=== PATIENT | female | born 1960 | race African-American/Black ===

== ENCOUNTER 2017-03-19 06:21 | Emergency (ER) | payer MEDICARE, OTHER ==
[~2017-03-19] VITALS: Ht 152.4 cm; Wt 110.2 kg
[~2017-03-19 06:21] MED LIST: ALBU8.5H6 IH; ALPR0.5T PO; CALC600T4 PO; CITA40TA5 PO; CYCL-331 PO; ESOM40CA PO; FURO-69 PO; IBUP100T4 PO; LEVO175T2 PO; METO25TA9 PO; MONT10TA6 PO; OXYC-323 PO; PNV1TABL12 PO; QUET50TA5 PO; SIMV20TA3 PO; TRAZ-90 PO; VITAMIN B
--- NOTE | 2017-03-19 06:28 | ED.ADGEN ---
Past History Past Medical History: Anxiety, Asthma, COPD, Depression, Hypertension, Ovarian Cyst Past Surgical History: , Hysterectomy, Knee Replacement, Tonsillectomy , Other Additional Past Surgical Histo: lap band, thyroid removed, sinus surgery, ovarian cyst removal, ganglion Smoking: Non-smoker Alcohol Use: None Drug Use: None Adult General Chief Complaint Chief Complaint Back pain HPI HPI Patient is a 57 year old -[place] female who presents with right-sided back pain. She states that [place] all [place] with baclofen and Motrin. She seen her primary care physician and had therapy and was started on Percocet for a while. She then 2 months ago fell at [employer]. She states she's been having pain even before the [employer] fall on her right hip/back area. She was seen by a rider whose stated it was in her hip and was more in her back. She describes the pain as a sharp stabbing pain in the right lumbar paraspinal area that radiates down her leg past her knee. She states it hurts in the middle night and grabs her and is a sharp throbbing pain and then will resolve. She's tried Motrin and has tried some Flexeril at home and tried ice. She denies any leg numbness, saddle anesthesia, urinary incontinence fevers chills nausea or vomiting or dysuria. She does have a primary care physician of which has an appointment with next week. She states her primary care physician encouraged her to use Motrin. Review of Systems Review of Systems Constitutional: Denies fever or chills [] Eyes: Denies change in visual acuity, redness, or eye pain [] HENT: Denies nasal congestion or sore throat [] Respiratory: Denies cough or shortness of breath [] Cardiovascular: No additional information not addressed in HPI [] GI: Denies abdominal pain, nausea, vomiting, bloody stools or diarrhea [] : Denies dysuria or hematuria [] Musculoskeletal: Positive for back pain Integument: Denies rash or skin lesions [] Neurologic: Denies headache, focal weakness or sensory changes [] Endocrine: Denies polyuria or polydipsia [] Current Medications Current Medications Current Medications Medications (Trade) Dose Ordered Sig/Neto Start Time Stop Time Status Last Admin Dose Admin Tramadol HCl (Starter Pack - Ultram) 1 startpack 1X ONCE 03/19/17 08:00 03/19/17 08:20 DC Allergies Allergies Allergies Coded Allergies Type Severity Reaction Last Updated Verified Penicillins Allergy Intermediate 06/09/14 Yes sulfamethoxazole Allergy Mild rash/itching 06/09/14 Yes trimethoprim Allergy Mild rash/itching 06/09/14 Yes Physical Exam Physical Exam Constitutional: Well developed, well nourished, no acute distress, non-toxic appearance. [] HENT: Normocephalic, atraumatic, bilateral external ears normal, oropharynx moist, no oral exudates, nose normal. [] Eyes: PERRLA, EOMI, conjunctiva normal, no discharge. [] Neck: Normal range of motion, no tenderness, supple, no stridor. [] Cardiovascular:Heart rate regular rhythm, no murmur [] Lungs & Thorax: Bilateral breath sounds clear to auscultation [] Abdomen: Bowel sounds normal, soft, no tenderness, no masses, no pulsatile masses. [] Skin: Warm, dry, no erythema, no rash. [] Back: Tender to palpation of the right lumbar lower paraspinal area, no deformities noted, no midline back tenderness or step-offs appreciated, no CVA tenderness. Ambulates with a steady gait Extremities: No tenderness, no cyanosis, no clubbing, ROM intact, no edema. [] Neurologic: Alert and oriented X 3, normal motor function, normal sensory function, no focal deficits noted. [] Psychologic: Affect normal, judgement normal, mood normal. [] Current Patient Data Vital Signs Vital Signs Date Time Temp Pulse Resp B/P (MAP) Pulse Ox O2 Delivery O2 Flow Rate FiO2 03/19/17 07:07 98.1 74 18 98 Room Air Lab Results Laboratory Tests Test 03/19/17 07:30 Urine Collection Type Unknown Urine Color Sita Urine Clarity Hazy Urine pH 5.5 Urine Specific [place] 1.025 Urine Protein Neg (NEG-TRACE) Urine Glucose (UA) Neg mg/dL (NEG) Urine Ketones (Stick) Trace mg/dL (NEG) Urine Blood Small (NEG) Urine Nitrite Neg (NEG) Urine Bilirubin Neg (NEG) Urine Urobilinogen Dipstick 0.2 mg/dL (0.2 mg/dL) Urine Leukocyte Esterase Trace (NEG) Urine RBC 1-2 /HPF (0-2) Urine WBC 1-4 /HPF (0-4) Urine Squamous Epithelial Cells Mod /LPF Urine Transitional Epithelial Cells Occ /LPF Urine Bacteria Few /HPF (0-FEW) Urine Hyaline Casts Few /HPF Urine Mucus Slight /LPF EKG EKG [] Radiology/Procedures Radiology/Procedures [] Course & Med Decision Making Course & Med Decision Making Pertinent Labs and Imaging studies reviewed. (See chart for details) Her pain is consistent with a muscle spasm. She has no neurological deficits. She is encouraged to use Motrin and baclofen. A prescription has been written. She was discharged with a tramadol dose pack since it might take her few hours to get her baclofen filled. She is instructed not to take baclofen and Flexeril together. She is encouraged to drink a few extra glasses of water while taking high doses of Motrin. She is encouraged to follow-up with her primary care physician next week. She is instructed return back to ER for numbness tingling weakness weakness urinary incontinence fevers or other concerns. She is agreeable to the plan of being discharged in stable condition. Final Impression Final Impression Back pain Problems: Dragon Disclaimer Dragon Disclaimer This electronic medical record was generated, in whole or in part, using a voice recognition dictation system. BUD QUINONES MD Mar 19, 2017 06:28
[2017-03-19] MEDS ORDERED: START PACK - traMADol 1 STARTPACK TABLET PO ONE (08:00)
[2017-03-19 08:08] LABS: BILIRUBIN,URINE NEG (NEG); CLARITY,URINE HAZY; COLOR,URINE AMBER; GLUCOSE,URINE NEG (NEG)
[2017-03-19 08:09] LABS: BACTERIA,URINE FEW /HPF (0-FEW); HYALINE CASTS, URINE FEW /HPF; NITRITE,URINE NEG (NEG); SQUAMOUS EPITHELIAL CELL,UR MOD /LPF; UROBILINOGEN,URINE 0.2 mg/dL (0.2 mg/dL)
[2017-03-19 08:29] VITALS: BP 118/75
== END 2017-03-19 08:28 | disposition home or self-care (01) ==
LOC: ER 06:21
DX: M54.89 Other dorsalgia (principal); I10 Essential (primary) hypertension; J44.9 Chronic obstructive pulmonary disease, unspecified; F41.9 Anxiety disorder, unspecified; Z88.0 Allergy status to penicillin; Z88.1 Allergy status to other antibiotic agents
CPT/HCPCS: 81001; 87086; 99284